=== PATIENT | female | born 1990 | race Caucasian/White ===

== ENCOUNTER 2019-05-23 19:45 | Emergency (ER) | payer BC ==
[~2019-05-23] VITALS: Ht 157.5 cm; Wt 74.9 kg
[2019-05-23] MEDS ORDERED: MELA5TAB14 PO (20:37)
--- NOTE | 2019-05-23 20:37 | NUR ---
PT IN HOSPITAL GOWN. PT ABLE TO PROVIDE URINE SAMPLE. SAMPLE SENT TO LAB. PT GIVEN CALL LIGHT. WILL CONTINUE TO MONITOR.
[2019-05-23 20:45] LABS: BASOPHILS # (AUTO) 0.02 x10^3/uL (0-0.1); BASOPHILS % (AUTO) 0 % (0-1); EOSINOPHILS # (AUTO) 0.19 x10^3/uL (0-0.4); EOSINOPHILS % (AUTO) 2 % (1-7); LYMPHOCYTES # (AUTO) 2.49 x10^3/uL (1-3.4); LYMPHOCYTES % (AUTO) 26 % (22-44); MD NO; MEAN CORPUSCULAR HEMOGLOBIN 30.9 pg (27.0-34.8); MEAN CORPUSCULAR HGB CONC 33.2 g/dL (32.4-35.8); MEAN CORPUSCULAR VOLUME 92.9 fL (80-100); MEAN PLATELET VOLUME 7.5 fL (7.4-10.4); MONOCYTES # (AUTO) 0.52 x10^3/uL (0.2-0.8); MONOCYTES % (AUTO) 6 % (2-9); NEUTROPHILS # (AUTO) 6.33 x10^3/uL (1.8-6.8); NEUTROPHILS % (AUTO) 66 % (42-75); PLATELET COUNT 373 x10^3/uL (130-400); RED BLOOD COUNT 4.52 x10^6/uL (3.82-5.3); RED CELL DISTRIBUTION WIDTH 12.6 % (9.6-15.2)
[2019-05-23 20:50] LABS: MICROSCOPIC NOT IND
[2019-05-23 20:55] LABS: CULTURE INDICATED? NO
[2019-05-23 20:56] LABS: ALBUMIN 3.8 g/dL (3.4-5.0); ANION GAP 6 mmol/L (5-15); CALCIUM 8.9 mg/dL (8.5-10.1); CHLORIDE 109 mmol/L (98-107); CREATININE 0.83 mg/dL (0.55-1.02)
--- NOTE | 2019-05-23 21:04 | NUR ---
REPORT FROM IRINA GOMEZ
[2019-05-23 21:13] VITALS: BP 110/63
== END 2019-05-23 22:22 | disposition home or self-care (01) ==
LOC: ED 21:47
DX: R10.31 Right lower quadrant pain (principal); R10.32 Left lower quadrant pain
CPT/HCPCS: 36415; 76830; 80048; 81003; 82040; 84703; 85025; 99284